=== PATIENT | female | born 1985 | race Caucasian/White ===

== ENCOUNTER 2017-10-29 19:38 | Emergency (ER) | payer MEDICAID ==
[~2017-10-29] VITALS: Ht 160 cm; Wt 80.7 kg
[2017-10-29 19:45] VITALS: BP 153/91
[2017-10-29 20:46] LABS: BASOPHILS # (AUTO) 0.14 x10^3/uL (0-0.1); BASOPHILS % (AUTO) 1 % (0-1); EOSINOPHILS # (AUTO) 0.03 x10^3/uL (0-0.4); EOSINOPHILS % (AUTO) 0 % (1-7); LYMPHOCYTES # (AUTO) 1.36 x10^3/uL (1-3.4); LYMPHOCYTES % (AUTO) 14 % (22-44); MD NO; MEAN CORPUSCULAR HEMOGLOBIN 25.9 pg (27.0-34.8); MEAN CORPUSCULAR HGB CONC 32.6 g/dL (32.4-35.8); MEAN CORPUSCULAR VOLUME 79.4 fL (80-100); MEAN PLATELET VOLUME 10.5 fL (7.4-10.4); MONOCYTES # (AUTO) 0.58 x10^3/uL (0.2-0.8); MONOCYTES % (AUTO) 6 % (2-9); NEUTROPHILS # (AUTO) 7.68 x10^3/uL (1.8-6.8); NEUTROPHILS % (AUTO) 79 % (42-75); PLATELET COUNT 248 x10^3/uL (130-400); RED BLOOD COUNT 5.28 x10^6/uL (3.82-5.3); RED CELL DISTRIBUTION WIDTH 15.7 % (9.6-15.2)
[2017-10-29 20:54] LABS: ALBUMIN 3.8 g/dL (3.4-5.0); ANION GAP 10 mmol/L (5-15); CHLORIDE 102 mmol/L (98-107); CREATININE 0.85 mg/dL (0.55-1.02)
== END 2017-10-29 23:27 | disposition left against medical advice (07) ==
LOC: ED 23:21
DX: F19.10 Other psychoactive substance abuse, uncomplicated (principal)
CPT/HCPCS: 36415; 80048; 82040; 85025; 87081; 87880; 93005; 99285

== ENCOUNTER 2019-01-11 16:50 | Emergency (ER) | payer SELFPAY ==
[~2019-01-11] VITALS: Ht 160 cm; Wt 78.0 kg
[2019-01-11] MEDS ORDERED: LORazepam 1MG TABLET PO ONE (17:30)
[2019-01-11 17:38] LABS: RAPID INFLUENZA A Negative (Negative); RAPID INFLUENZA B Negative (Negative)
[2019-01-11] MEDS ORDERED: LORazepam 1MG TABLET ONE (17:46)
--- NOTE | 2019-01-11 17:50 | NUR ---
Pt ambulating room, restless, pt asked repeatedly to do simple tasks. Pt refused blood pressure recheck. Pt medicated per DEC.
--- NOTE | 2019-01-11 17:52 | NUR ---
Pt states last meth use was "a long time ago," with clarification, pt's last meth use was "a few hours ago."
--- NOTE | 2019-01-11 18:06 | NUR ---
ERP at bedside to evaluate pt.
[2019-01-11 18:39] LABS: BASOPHILS # (AUTO) 0.11 x10^3/uL (0-0.1); BASOPHILS % (AUTO) 1 % (0-1); EOSINOPHILS # (AUTO) 0.08 x10^3/uL (0-0.4); EOSINOPHILS % (AUTO) 1 % (1-7); LYMPHOCYTES # (AUTO) 1.85 x10^3/uL (1-3.4); LYMPHOCYTES % (AUTO) 15 % (22-44); MD NO; MEAN CORPUSCULAR HEMOGLOBIN 27.2 pg (27.0-34.8); MEAN CORPUSCULAR HGB CONC 33.5 g/dL (32.4-35.8); MEAN CORPUSCULAR VOLUME 81.1 fL (80-100); MEAN PLATELET VOLUME 10.8 fL (7.4-10.4); MONOCYTES # (AUTO) 0.98 x10^3/uL (0.2-0.8); MONOCYTES % (AUTO) 8 % (2-9); NEUTROPHILS # (AUTO) 9.21 x10^3/uL (1.8-6.8); NEUTROPHILS % (AUTO) 75 % (42-75); PLATELET COUNT 218 x10^3/uL (130-400); RED BLOOD COUNT 5.29 x10^6/uL (3.82-5.3); RED CELL DISTRIBUTION WIDTH 14.6 % (9.6-15.2)
[2019-01-11 18:46] LABS: ANION GAP 5 mmol/L (5-15); CALCIUM 9.2 mg/dL (8.5-10.1); CHLORIDE 103 mmol/L (98-107); CREATININE 0.69 mg/dL (0.55-1.02)
[2019-01-11 19:22] VITALS: BP 148/84
--- NOTE | 2019-01-11 19:23 | NUR ---
Patient/Caregiver given discharge instructions and they have confirmed that they understand the instructions. Patient ambulatory with steady gait.
== END 2019-01-11 19:24 | disposition home or self-care (01) ==
LOC: ED 17:44
DX: F15.10 Other stimulant abuse, uncomplicated (principal); F41.9 Anxiety disorder, unspecified; F17.210 Nicotine dependence, cigarettes, uncomplicated
CPT/HCPCS: 36415; 71046; 80048; 82040; 85025; 87400; 99284

== ENCOUNTER 2019-01-13 13:14 | Emergency (ER) | payer SELFPAY ==
[~2019-01-13] VITALS: Ht 160 cm; Wt 82.4 kg
--- NOTE | 2019-01-13 13:17 | NUR ---
NIL X 1.
[2019-01-13 13:19] VITALS: BP 136/72
--- NOTE | 2019-01-13 13:30 | NUR ---
PT IN ROOM 16. NO ACUTE DISTRESS NOTED AT THIS TIME. WE ARE AWAITING AN MD TO ASSESS.
--- NOTE | 2019-01-13 13:33 | NUR ---
MD IS AT THE BEDSIDE TO ASSESS
== END 2019-01-13 13:52 | disposition home or self-care (01) ==
LOC: ED 13:40
DX: R11.2 Nausea with vomiting, unspecified (principal); M79.18 Myalgia, other site; F41.1 Generalized anxiety disorder; F17.210 Nicotine dependence, cigarettes, uncomplicated
CPT/HCPCS: 99281

== ENCOUNTER 2019-05-11 08:57 | Emergency (ER) | payer SELFPAY ==
[~2019-05-11] VITALS: Ht 152.4 cm; Wt 82.5 kg
--- NOTE | 2019-05-11 09:09 | NUR ---
PT STATES SHE SWALLOWED SOMETHING AND ITS STUCK IN HER THROAT, SHE STATES SHE WAS EATING CHICKEN NOODLE SOUP AND "MAYBE SOME CHICKEN IS IN HER THROAT" SHE ALSO STATES, "I MAY HAVE JUST SMOKED TOO MANY CIGARRETTES"
[2019-05-11 10:00] LABS: BASOPHILS % (AUTO) 2 % (0-1); EOSINOPHILS # (AUTO) 0.06 x10^3/uL (0-0.4); EOSINOPHILS % (AUTO) 1 % (1-7); LYMPHOCYTES # (AUTO) 1.84 x10^3/uL (1-3.4); LYMPHOCYTES % (AUTO) 21 % (22-44); MD NO; MEAN CORPUSCULAR HEMOGLOBIN 26.4 pg (27.0-34.8); MEAN CORPUSCULAR HGB CONC 32.2 g/dL (32.4-35.8); MEAN PLATELET VOLUME 10.2 fL (7.4-10.4); MONOCYTES # (AUTO) 0.71 x10^3/uL (0.2-0.8); MONOCYTES % (AUTO) 8 % (2-9); NEUTROPHILS # (AUTO) 5.94 x10^3/uL (1.8-6.8); NEUTROPHILS % (AUTO) 68 % (42-75); PLATELET COUNT 234 x10^3/uL (130-400); RED BLOOD COUNT 5.26 x10^6/uL (3.82-5.3); RED CELL DISTRIBUTION WIDTH 14.5 % (9.6-15.2)
[2019-05-11 10:12] LABS: ALANINE AMINOTRANSFERASE 25 U/L (12-78); ALBUMIN 4.1 g/dL (3.4-5.0); ANION GAP 8 mmol/L (5-15); CALCIUM 9.3 mg/dL (8.5-10.1); CHLORIDE 104 mmol/L (98-107); CREATININE 0.74 mg/dL (0.55-1.02)
[2019-05-11 10:14] LABS: ALKALINE PHOSPHATASE 93 U/L (45-117); BILIRUBIN,TOTAL 0.4 mg/dL (0.2-1.0)
--- NOTE | 2019-05-11 11:06 | NUR ---
PT RETURNED [facility]. UNABLE TO COMPLETE ESOPHAGRAM, STATES SHE IS DIZZY AND JUST WANTED TO COME BACK TO THE ROOM TO SIT DOWN. PT AMBULATORY TO ROOM WITH STEADY GAIT. VSS. WILL UPDATE EPA.
[2019-05-11 11:09] VITALS: BP 136/88
--- NOTE | 2019-05-11 11:21 | NUR ---
PT STATES SHE HAS TO CALL HER SISTER SO THAT SHE CAN PERFORM HER TEST. PT WALKING TOWARD D/C DESK. INFORMED THE PT THAT SHE COULD CALL FROM THE DESK PHONE AND DID NOT HAVE TO LEAVE THE ER. RN LEFT THE PT BREIFLY TO MAKE CALL, WHEN RETURNED REG STATES THE PT LEFT, UNABLE TO LOCATE THE PT IN LOBBY OR OUTSIDE ER LOBBY. ER PROVIDER UPDATED, PT ELOPED
== END 2019-05-11 11:26 | disposition left against medical advice (07) ==
LOC: ED 11:19
DX: J02.9 Acute pharyngitis, unspecified (principal); F41.1 Generalized anxiety disorder; F15.10 Other stimulant abuse, uncomplicated
CPT/HCPCS: 36415; 80053; 83690; 85025; 99283